=== PATIENT | female | born 1975 | race Caucasian/White ===

== ENCOUNTER 2017-09-22 09:45 | Emergency (ER) | payer SELFPAY ==
[~2017-09-22] VITALS: Ht 147.3 cm; Wt 65.9 kg
[2017-09-22 09:49] VITALS: BP 150/85
--- NOTE | 2017-09-22 10:01 | NUR ---
PT AMBULATES W/ STEADY GAIT TO BED 11 AT THIS TIME.
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
[2017-09-22] MEDS ORDERED: KETOROLAC 60 MG/2 ML VIAL IM ONE (10:40)
--- NOTE | 2017-09-22 10:56 | NUR ---
XRAY AT BEDSIDE AT THIS TIME.
[2017-09-22 11:19] VITALS: BP 138/81
== END 2017-09-22 11:20 | disposition home or self-care (01) ==
LOC: MED 09:45
DX: S20.212A Contusion of left front wall of thorax, initial encounter (principal); V43.53XA Car driver injured in collision with pick-up truck in traffic accident, initial encounter; Y93.89 Activity, other specified; Y92.488 Other paved roadways as the place of occurrence of the external cause; Y99.8 Other external cause status
CPT/HCPCS: 71045; 96372; 99283; J1885

== ENCOUNTER 2018-08-03 22:44 | Emergency (ER) | payer SELFPAY ==
[~2018-08-03] VITALS: Ht 142.2 cm; Wt 58.6 kg
[2018-08-03 22:52] VITALS: BP 127/79
--- NOTE | 2018-08-03 23:24 | NUR ---
PT AMBULATED TO BED 01.
[2018-08-03] MEDS ORDERED: CYCLOBENZAPRINE 10 MG TAB PO ONE (23:30)
--- NOTE | 2018-08-03 23:30 | NUR ---
PT BIB SELF C/O LEFT ARM PAIN AND HEADACHE. PT STATES SUDDEN ONSET OF LEFT ARM PAIN THAT RADIATES TO HEAD, 10/10 SHARP PAIN. DENIES TRAUMA. DENIES N/V/D. PUPILS EQUAL. SPEECH CLEAR. 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 AAOX4. PT IN GOWN, IN BED; BED IN LOWER LOCKED POSITION. ER MD MADE AWARE OF PT STATUS. PMH: DENIES RX: DENIES
[2018-08-03] MEDS ORDERED: ACETAMINOPHEN EXTRA STRENGTH 500 MG TAB PO ONE (23:45)
--- NOTE | 2018-08-03 23:54 | NUR ---
X-RAY AT BEDSIDE.
[2018-08-04 00:12] LABS: APPEARANCE,URINE HAZY (CLEAR); BILIRUBIN,URINE NEGATIVE (NEGATIVE); BLOOD, URINE NEGATIVE (NEGATIVE); COLOR,URINE YELLOW (YELLOW); LEUKOCYTE ESTERASE ,URINE NEGATIVE (NEGATIVE); NITRITE, URINE NEGATIVE (NEGATIVE); UGLUCOSE NEGATIVE (NEGATIVE)
[2018-08-04 00:16] LABS: BASOPHILS % (AUTO) 0.5 % (0.0-2.0); EOSINOPHILS # (AUTO) 0.1 K/uL (0-0.4); HEMATOCRIT 34.1 % (36-48); HEMOGLOBIN 11.5 g/dL (12.0-16.0); LYMPHOCYTES # (AUTO) 2.3 K/uL (2.5-16.5); LYMPHOCYTES % (AUTO) 28.8 % (20.5-51.1); MEAN CORPUSCULAR HEMOGLOBIN 31 pg (27-31); MEAN CORPUSCULAR HGB CONC 34 g/dL (33-37); MEAN CORPUSCULAR VOLUME 90.7 fL (80-94); MONOCYTES # (AUTO) 0.5 K/uL (0.8-1.0); MONOCYTES % (AUTO) 5.8 % (1.7-9.3); NEUTROPHILS # (AUTO) 5.2 K/uL (1.8-7.7); NEUTROPHILS % (AUTO) 63.9 % (42.2-75.2); PLATELET COUNT (AUTO) 271 K/uL (140-450); RED BLOOD CELL COUNT(AUTO) 3.76 MIL/uL (4.20-5.40); RED CELL DISTRIBUTION WIDTH 13.4 % (11.6-13.7); WHITE BLOOD COUNT (AUTO) 8.1 K/uL (4.8-10.8)
[2018-08-04 00:21] LABS: RBC,URINE 0-5 /HPF (0-5); WBC,URINE 0-5 /HPF (0-5)
[2018-08-04] MEDS ORDERED: MORPHINE SULFATE 4 MG/ML SYR IM ONE (00:25)
[2018-08-04 00:34] LABS: CARBON DIOXIDE 26.3 mmol/L (21-32); CREATININE 0.7 mg/dL (0.6-1.3); POTASSIUM 3.3 mmol/L (3.5-5.1)
[2018-08-04 00:38] LABS: TOTAL BILIRUBIN 0.2 mg/dL (0.0-1.0)
[2018-08-04 00:39] LABS: ALBUMIN 3.5 g/dL (3.4-5.0)
[2018-08-04] MEDS ORDERED: MORPHINE SULFATE 4 MG/ML SYR ONE (00:49)
[2018-08-04 01:44] VITALS: BP 97/55
== END 2018-08-04 01:45 | disposition home or self-care (01) ==
LOC: MED 22:44
DX: R51 Headache (principal); F41.9 Anxiety disorder, unspecified; M79.602 Pain in left arm
CPT/HCPCS: 36415; 71045; 80053; 81001; 84484; 85025; 99284; J2270; Q0092; 93005